=== PATIENT | male | born 1970 | race Caucasian/White ===

== ENCOUNTER 2017-09-24 20:30 | Emergency (ER) | payer OTHER ==
[~2017-09-24] VITALS: Wt 158.8 kg
[~2017-09-24 20:30] MED LIST: 'PARAFON FORTE500 M1 PO; AMOXICILLIN875 MG PO; ANAPROX DS550 MG PO; CLINDAMYCIN HC300 MG PO; CYCLOBENZAPRINE10 MG PO; FLEXERIL10 MG PO; FLEXERIL5 MG PO; HYDROCODONE BIT1 T11 PO; IBU800 M1 PO; MOTRIN800 MG PO; Motrin,Rufen800 MG PO; NAPROSYN500 MG PO; NKHM; NORCO 325 MG-101 TAB PO; NORCO 325 MG-51 TAB PO; PERCOCET 325 MG1 TA2 PO; PREDNICOT20 MG PO; PREDNISONE50 MG PO; ROBAXIN500 MG PO; ULTRAM50 MG PO; VICODIN 5/500 505 MG PO; VICODIN 500 MG-1 TAB PO; VOLTAREN50 M1 PO
[2017-09-24] MEDS ORDERED: CYCLOBENZAPRINE5 M3 PO (21:41)
== END 2017-09-24 21:47 | disposition home or self-care (01) ==
LOC: ED 20:30
DX: S39.012A Strain of muscle, fascia and tendon of lower back, initial encounter (principal); G47.33 Obstructive sleep apnea (adult) (pediatric); I48.91 Unspecified atrial fibrillation; E66.01 Morbid (severe) obesity due to excess calories; F14.10 Cocaine abuse, uncomplicated; Z86.718 Personal history of other venous thrombosis and embolism; X58.XXXA Exposure to other specified factors, initial encounter; Y93.89 Activity, other specified; Y92.89 Other specified places as the place of occurrence of the external cause; Y99.9 Unspecified external cause status